=== PATIENT | male | born 1950 | race Caucasian/White ===

== ENCOUNTER 2017-05-12 15:26 | Emergency (ER) | payer BC ==
[~2017-05-12] VITALS: Ht 182.9 cm; Wt 128.9 kg
[~2017-05-12 15:26] MED LIST: ALLOPURINOL300 MG PO; ASPIR-LOW81 MG PO; HYDROCHLOROTHIA25 MG PO; LYRICA75 MG PO; PREVACID30 MG PO; SYNTHROID25 MCG PO
[2017-05-12 16:47] LABS: POINT-OF-CARE METER ID UU13113800
[2017-05-12 17:14] LABS: ADD MIUA? NO; BILIRUBIN NEGATIVE; BLOOD NEGATIVE; COLOR YELLOW ((YELLOW)); GLUCOSE (STRIP) NEGATIVE; KETONES NEGATIVE; LEUKOCYTES NEGATIVE; NITRITE NEGATIVE; PROTEIN (STRIP) 30; SPECIFIC GRAVITY 1.026 (1.000-1.030); UCUL ADDED? NO; UROBILINOGEN 0.2 MG/DL (0.2-1.0)
[2017-05-12] MEDS ORDERED: MOTRIN600 MG PO (17:31)
[2017-05-12] MEDS ORDERED: SKELAXIN800 MG PO (17:31)
[2017-05-12] MEDS ORDERED: NORCO 5/3251 TABLET PO (17:31)
[2017-05-12 18:11] VITALS: BP 157/78
== END 2017-05-12 18:16 | disposition home or self-care (01) ==
LOC: EME 15:26
PROVIDERS: Physician Assistant
DX: S39.012A Strain of muscle, fascia and tendon of lower back, initial encounter (principal); X58.XXXA Exposure to other specified factors, initial encounter; I10 Essential (primary) hypertension; K21.9 Gastro-esophageal reflux disease without esophagitis; E11.9 Type 2 diabetes mellitus without complications; K58.9 Irritable bowel syndrome, unspecified; Z87.891 Personal history of nicotine dependence
CPT/HCPCS: 81003; 82948; 99281; 99284; J3010